=== PATIENT | female | born 1980 | race Caucasian/White ===

== ENCOUNTER → 2024-06-10 20:20 | Outpatient (REF) | payer OTHER, SELFPAY | LOC: MRI 3T 20:20 | PROVIDERS: ATTENDING PHYSICIAN Orthopaedic Surgery Orthopaedic Surgery of the Spine; FAMILY PHYSICIAN Nurse Practitioner Family | DX: M54.59 Other low back pain (principal) | CPT/HCPCS: 72158; A9575 ==